=== PATIENT | male | born 1945 | race Caucasian/White ===

== ENCOUNTER 2017-04-24 14:16 | Day surgery (SDC) | payer OTHER ==
[2017-04-24] MEDS ORDERED: MIDAZOLAM 1 MG/ML 2 ML INJ ×2 (17:11)
[2017-04-24] MEDS ORDERED: FENTAnyl 50 MCG/ML VIAL (17:11)
== END 2017-04-24 17:56 | disposition home or self-care (01) ==
LOC: GIL 14:16
DX: Z12.11 Encounter for screening for malignant neoplasm of colon (principal); K29.60 Other gastritis without bleeding; K44.9 Diaphragmatic hernia without obstruction or gangrene; K21.9 Gastro-esophageal reflux disease without esophagitis; K64.8 Other hemorrhoids; E78.5 Hyperlipidemia, unspecified
CPT/HCPCS: 43239; 88305; 88312